=== PATIENT | female | born 1990 | race Caucasian/White ===

== ENCOUNTER → 2016-12-01 | Outpatient (CLI) | payer SELFPAY ==
[~2016-12-01] MED LIST: CALCIUM 500500 M1 PO; CIPRO 500MG TA500 MG PO; CRANBERRY400 M1 PO; ELITE MAGNESIUM1 TAB PO; IRON325 M1 PO; LEVAQUIN 750MG750 M1 PO; LYSINE500 MG PO; MULTIPLE VITAMI1 CAP PO; PERCOCET 325 MG1 TA2 PO; PORTIA-28 30 MC1 TAB PO; VITAMIN C500 MG PO; ZINC50 M1 PO; ZOFRAN 4MG T4 MG/TAB PO
== END ==
LOC: COL.RAD 09:28
DX: M25.551 Pain in right hip (principal)